=== PATIENT | female | born 1985 | race Caucasian/White ===

== ENCOUNTER 2022-10-28 11:19 | Outpatient (OUT) | payer OTHER, SELFPAY ==
[2022-10-28 11:40] LABS: Basophils Percent Auto 0.4 % (0.2-2.0); Eosinophils Absolute Auto 0.1 10^3/uL (0.0-0.7); Eosinophils Percent Auto 1.8 % (0.9-7.0); Hemoglobin 13.4 g/dL (12.0-16.0); Immature Granulocytes Abs Auto 0.02 10^3/uL (0.00-0.03); Immature Granulocytes Pct Auto 0.3 % (0.0-0.5); Lymphocytes Absolute Auto 1.6 10^3/uL (1.2-3.8); Lymphocytes Percent Auto 23.2 % (20.5-60.0); Mean Corpuscular HGB Conc 33.5 g/dL (29.9-35.2); Mean Corpuscular Hemoglobin 29.8 pg (26.7-34.0); Mean Corpuscular Volume 89.1 fL (81.0-99.0); Mean Platelet Volume 9.3 fL (9.5-13.5); Monocytes Absolute Auto 0.6 10^3/uL (0.3-0.8); Monocytes Percent Auto 8.2 % (1.7-12.0); Neutrophils Absolute Auto 4.5 10^3/uL (1.4-6.5); Neutrophils Percent Auto 66.1 % (43.0-75.0); Platelet Count 273 10^3/uL (150-450); Red Blood Count 4.49 10^6/uL (4.20-5.40); Red Cell Distribution Width 12.1 % (11.0-15.0); White Blood Count 6.8 10^3/uL (4.0-11.0)
[2022-10-28 11:50] LABS: Estimated Average Glucose 100 mg/dL; Glycohemoglobin A1C 5.1 % (4.5-6.2)
[2022-10-28 11:55] LABS: Partial Thromboplastin Time 27.6 sec (22.3-36.2); Prothrombin Time 10.6 sec (9.0-11.6)
[2022-10-28 14:09] LABS: HCG Quantitative <1 mIU/mL; Thyroid Stimulating Hormone 1.192 uIU/mL (0.358-3.740)
== END 2022-10-28 11:20 | disposition home or self-care (01) ==
LOC: LAB 11:24
PROVIDERS: PCP Internal Medicine; Visit Provider Obstetrics & Gynecology
DX: N92.6 Irregular menstruation, unspecified (principal)
CPT/HCPCS: 36415; 83036; 84439; 84443; 84702; 85025; 85610; 85730

== ENCOUNTER 2022-11-11 15:51 | Outpatient (OUT) | payer OTHER, SELFPAY ==
--- NOTE | 2022-11-11 15:57 | US_ITS ---
The [address] [address] Patient Name: ESPINOZA HENRY MRN: [id number] date: 1985 Sex: F Assigned Patient Location: US Current Patient Location: Accession/Order Number: [id number] Exam Date: 11/11/2022 16:06 Report Date: 11/12/2022 07:11 At the request of: ALLI JORDAN Procedure: US pelvis transvaginal EXAMINATION: US pelvis transvaginal HISTORY: Irregular menstrual cycle N92.6 COMPARISON: No relevant comparison available. FINDINGS: Transabdominal and transvaginal images The uterus measures 8.7 x 4.6 x 4.7 cm. Multiple areas of punctate echogenicity likely representing myometrial calcifications. Multiple myometrial masses measuring up to 1.5 cm along the superior anterior myometrium The endometrium measures 9.1 mm, normal. The right ovary is normal measuring 3.2 x 2.1 x 2.6 cm. Normal color and Doppler flow. Left ovary is normal measuring 2.9 x 2.1 x 2.3 cm. Normal color Doppler flow Prominent right periadnexal vessels. No free fluid US/US pelvis transvaginal IMPRESSION: Heterogeneous myometrium with multiple myometrial masses measuring up to 1.5 cm, fibroids are statistically favored Prominent right periadnexal vessels, consider uterine vein reflux Electronically authenticated by: ANTONETTE COOPER Date: 11/12/2022 07:11
== END 2022-11-11 15:52 | disposition home or self-care (01) ==
PROVIDERS: PCP Internal Medicine; Visit Provider Obstetrics & Gynecology
DX: N92.6 Irregular menstruation, unspecified (principal)
CPT/HCPCS: 76830